=== PATIENT | female | born 1985 | race Caucasian/White ===

== ENCOUNTER 2025-08-10 21:20 | Emergency (ER) | payer BC ==
[2025-08-10] MEDS ORDERED: Ibuprofen 600 MG TAB ONE (21:39)
== END 2025-08-10 22:31 | disposition home or self-care (01) ==
LOC: MADERS 21:20
DX: S70.01XA Contusion of right hip, initial encounter (principal); K21.9 Gastro-esophageal reflux disease without esophagitis; G43.909 Migraine, unspecified, not intractable, without status migrainosus; F41.9 Anxiety disorder, unspecified; W01.0XXA Fall on same level from slipping, tripping and stumbling without subsequent striking against object, initial encounter; Y92.000 Kitchen of unspecified non-institutional (private) residence as the place of occurrence of the external cause; Y93.41 Activity, dancing; Z79.899 Other long term (current) drug therapy
CPT/HCPCS: 99283